=== PATIENT | male | born 1940 | race Caucasian/White ===

== ENCOUNTER 2019-12-22 07:43 | Day surgery (SDC) | payer MEDICARE ==
[~2019-12-22] VITALS: Ht 182.9 cm; Wt 82.6 kg
[~2019-12-22 07:43] MED LIST: ASPI-611 PO; HYDR25TA4 PO; LOSA50TA3 PO; MULT-342 PO
[2019-12-22] MEDS ORDERED: sodium bicarbonate (8.4%) inj. 75 MEQ in dextrose 5% water 500ml 500 ML IV SCH (08:10)
[2019-12-22 08:26] VITALS: BP 181/92
[2019-12-22] MEDS ORDERED: GABA-534 PO (09:23)
[2019-12-22] MEDS ORDERED: TRAZ-251 PO (10:17)
[2019-12-22] MEDS ORDERED: iohexol 350 MG/ML 50ML vial IV ONE (10:34)
[2019-12-22] MEDS ORDERED: iohexol 350MG/ML 100ml bottle IV ONE (10:34)
[2019-12-22 11:14] VITALS: BP 193/86
[2019-12-22] MEDS ORDERED: sodium bicarbonate (8.4%) inj. 75 ML in dextrose 5% water 500ml 500 ML IV ONE (11:35)
[2019-12-22 11:43] VITALS: BP 194/88
[2019-12-22 12:13] VITALS: BP 172/85
[2019-12-22 15:45] VITALS: BP 159/88
[2019-12-22 15:48] VITALS: BP 159/88
== END 2019-12-22 17:00 | disposition home or self-care (01) ==
LOC: SSTAY O 07:43
PROVIDERS: ATTEND Surgery
DX: I70.213 Atherosclerosis of native arteries of extremities with intermittent claudication, bilateral legs (principal); Z85.46 Personal history of malignant neoplasm of prostate; Z72.89 Other problems related to lifestyle; Z87.891 Personal history of nicotine dependence; Z79.82 Long term (current) use of aspirin; Z79.899 Other long term (current) drug therapy
CPT/HCPCS: 75635; Q9967

== ENCOUNTER 2022-01-27 09:23 | Outpatient (CLI) | payer MEDICARE ==
[~2022-01-27 09:23] MED LIST changes: +GABA-534 PO; +TRAZ-251 PO
[2022-01-27 10:38] LABS: ALANINE AMINOTRANSFERASE 28 U/L (12-78); ALBUMIN 3.8 G/DL (3.4-5.0); ALBUMIN/GLOBULIN RATIO 0.9 (1.1-1.5); ALKALINE PHOSPHATASE 90 IU/L (46-116); ANION GAP 10 (8-16); ASPARTATE AMINO TRANSFERASE 30 U/L (10-37); BILIRUBIN,TOTAL 0.4 MG/DL (0.1-1.0); BLOOD UREA NITROGEN 44 MG/DL (7-18); BUN/CREATININE RATIO 21.9 (5.4-32.0); CALCIUM 9.6 MG/DL (8.5-10.1); CHLORIDE 103 MMOL/L (99-107); CREATININE 2.01 MG/DL (0.60-1.10); GLUCOSE 96 MG/DL (70-104); POTASSIUM 4.4 MMOL/L (3.5-5.1); SODIUM 138 MMOL/L (135-145); TOTAL CARBON DIOXIDE 24.8 MMOL/L (24-32); TOTAL PROTEIN 8.1 G/DL (6.4-8.2); eGFR 32 ML/MIN
== END 2022-01-27 23:59 | disposition home or self-care (01) ==
LOC: LAB 09:23
PROVIDERS: ATTEND Surgery
DX: Z01.818 Encounter for other preprocedural examination (principal)
CPT/HCPCS: 36415; 80053

== ENCOUNTER 2022-02-01 08:22 | Outpatient (CLI) | payer MEDICARE ==
[~2022-02-01] VITALS: Ht 182.9 cm; Wt 87.8 kg
[2022-02-01 08:44] VITALS: BP 145/65
[2022-02-01] MEDS ORDERED: sodium bicarbonate (8.4%) inj. 150 ML in dextrose 5%-water 1,000 ML IV ONE (08:45)
[2022-02-01] MEDS ORDERED: UBID100C16 PO (09:18)
[2022-02-01] MEDS ORDERED: B6/F1CAP PO (09:18)
[2022-02-01] MEDS ORDERED: COLC0.6T72 PO (09:18)
[2022-02-01] MEDS ORDERED: LOP12.5T PO (09:18)
[2022-02-01] MEDS ORDERED: ALLO100T PO (09:18)
[2022-02-01] MEDS ORDERED: iohexol 350 MG/ML 50ML vial IV ONE (10:13)
[2022-02-01] MEDS ORDERED: iohexol 350MG/ML 100ml bottle IV ONE (10:13)
[2022-02-01 12:05] VITALS: BP 148/74
[2022-02-01 14:42] VITALS: BP 138/66
[2022-02-01 16:21] VITALS: BP 143/61
== END 2022-02-01 23:59 | disposition home or self-care (01) ==
LOC: SSTAY O 08:22
PROVIDERS: ATTEND Surgery
DX: I70.203 Unspecified atherosclerosis of native arteries of extremities, bilateral legs (principal); K40.90 Unilateral inguinal hernia, without obstruction or gangrene, not specified as recurrent; M47.819 Spondylosis without myelopathy or radiculopathy, site unspecified; K57.90 Diverticulosis of intestine, part unspecified, without perforation or abscess without bleeding; E27.8 Other specified disorders of adrenal gland; I51.7 Cardiomegaly; I70.8 Atherosclerosis of other arteries; I70.0 Atherosclerosis of aorta; K55.1 Chronic vascular disorders of intestine; I70.1 Atherosclerosis of renal artery
CPT/HCPCS: 75635; 93971; J3490; J7070; Q9967

== ENCOUNTER 2023-07-13 10:12 | Outpatient (CLI) | payer MEDICARE ==
[~2023-07-13 10:12] MED LIST changes: +ALLO100T PO; +B6/F1CAP PO; +COLC0.6T72 PO; -GABA-534 PO; +GABA-535 PO; +LOP12.5T PO; +LOSA-416 PO; -LOSA50TA3 PO; -TRAZ-251 PO; +UBID100C16 PO
[2023-07-13 11:12] LABS: BASOPHILS # (AUTO) 0.1 X10'3 (0-0.2); BASOPHILS % (AUTO) 1.1 % (0-1); EOSINOPHILS # (AUTO) 0.3 X10'3 (0-0.9); EOSINOPHILS % (AUTO) 4.3 % (0-6); HEMATOCRIT 38.5 % (42.0-52.0); HEMOGLOBIN 12.8 g/dl (14.0-17.9); LYMPHOCYTES # (AUTO) 1.6 X10'3 (1.1-4.8); LYMPHOCYTES % (AUTO) 20.4 % (21-51); MEAN CORPUSCULAR HEMOGLOBIN 32.6 PG (27.0-31.0); MEAN CORPUSCULAR HGB CONC 33.3 g/dL (33.0-36.5); MEAN CORPUSCULAR VOLUME 98.1 FL (78-98); MEAN PLATELET VOLUME 8.7 FL (7.4-10.4); MONOCYTES # (AUTO) 0.9 X10'3 (0-0.9); MONOCYTES % (AUTO) 11.3 % (2-12); NEUTROPHILS % (AUTO) 62.9 % (42-75); PLATELET COUNT 178 X10'3 (140-440); RED BLOOD COUNT 3.92 X10'6 (4.70-6.10); RED CELL DISTRIBUTION WIDTH 15.7 % (11.5-14.5); WHITE BLOOD COUNT 7.9 X10'3 (4.5-11.0)
[2023-07-13 11:29] LABS: APTT 28 SECONDS (22-32); PROTHROMBIN TIME 10.3 SECONDS (9.0-12.0)
[2023-07-13 11:42] LABS: ALANINE AMINOTRANSFERASE 18 U/L (12-78); ALBUMIN 3.5 G/DL (3.4-5.0); ALKALINE PHOSPHATASE 76 IU/L (46-116); ANION GAP 9 (8-16); ASPARTATE AMINO TRANSFERASE 24 U/L (10-37); BILIRUBIN,TOTAL 0.4 MG/DL (0.1-1.0); BLOOD UREA NITROGEN 33 MG/DL (7-18); BUN/CREATININE RATIO 16.9 (10.0-20.0); CALCIUM 9.1 MG/DL (8.5-10.1); CHLORIDE 104 MMOL/L (99-107); CREATININE 1.95 MG/DL (0.60-1.10); GLUCOSE 118 MG/DL (70-104); POTASSIUM 4.4 MMOL/L (3.5-5.1); PRO BRAIN NATRIURETIC PEPTIDE 1309 PG/ML (0-450); SODIUM 139 MMOL/L (135-145); TOTAL CARBON DIOXIDE 26.2 MMOL/L (24-32); TOTAL PROTEIN 7.1 G/DL (6.4-8.2); eGFR 33 ML/MIN
[2023-07-13 11:47] LABS: CHOLESTEROL 121 MG/DL (0-200); HDL CHOLESTEROL 41 MG/DL (35-60); LDL CHOLESTEROL 52 MG/DL (50-100)
[2023-07-13 11:48] LABS: TRIGLYCERIDES 203 MG/DL (20-135)
[2023-07-13] MEDS ORDERED: IODIXANOL 320 MG/ML INFUS..BTL 100ML IV ONE (12:20)
[2023-07-17] MEDS ORDERED: ROSU20TA73 PO (10:38)
[2023-07-17] MEDS ORDERED: LOSA1TAB39 PO (10:38)
== END 2023-07-13 23:59 | disposition home or self-care (01) ==
LOC: RAD 10:12
PROVIDERS: ATTEND Internal Medicine Cardiovascular Disease
DX: Z01.818 Encounter for other preprocedural examination (principal); I11.9 Hypertensive heart disease without heart failure; I35.0 Nonrheumatic aortic (valve) stenosis; R06.02 Shortness of breath; I65.29 Occlusion and stenosis of unspecified carotid artery; E78.5 Hyperlipidemia, unspecified; I25.10 Atherosclerotic heart disease of native coronary artery without angina pectoris; M47.814 Spondylosis without myelopathy or radiculopathy, thoracic region; Z90.79 Acquired absence of other genital organ(s); Z98.890 Other specified postprocedural states
CPT/HCPCS: 36415; 71046; 71275; 74174; 75572; 80053; 80061; 83880; 85025; 85610; 85730; 94010; 94727; 94729; J3490; Q9967

== ENCOUNTER 2023-08-28 10:46 | Day surgery (SDC) | payer MEDICARE ==
[2023-08-24 12:45] LABS: BASOPHILS % (AUTO) 0.6 % (0-1); EOSINOPHILS # (AUTO) 0.4 X10'3 (0-0.9); EOSINOPHILS % (AUTO) 5.8 % (0-6); HEMATOCRIT 38.1 % (42.0-52.0); HEMOGLOBIN 12.6 g/dl (14.0-17.9); LYMPHOCYTES % (AUTO) 14.6 % (21-51); MEAN CORPUSCULAR HEMOGLOBIN 32.6 PG (27.0-31.0); MEAN CORPUSCULAR HGB CONC 33.1 g/dL (33.0-36.5); MEAN CORPUSCULAR VOLUME 98.7 FL (78-98); MEAN PLATELET VOLUME 8.4 FL (7.4-10.4); MONOCYTES # (AUTO) 0.9 X10'3 (0-0.9); MONOCYTES % (AUTO) 12.3 % (2-12); NEUTROPHILS # (AUTO) 4.7 X10'3 (1.8-7.7); NEUTROPHILS % (AUTO) 66.7 % (42-75); PLATELET COUNT 170 X10'3 (140-440); RED BLOOD COUNT 3.86 X10'6 (4.70-6.10); RED CELL DISTRIBUTION WIDTH 15.4 % (11.5-14.5)
[2023-08-24 12:54] LABS: ALBUMIN 3.3 G/DL (3.4-5.0); ANION GAP 7 (8-16); BLOOD UREA NITROGEN 63 MG/DL (7-18); BUN/CREATININE RATIO 28.4 (10.0-20.0); CALCIUM 9.6 MG/DL (8.5-10.1); CHLORIDE 100 MMOL/L (99-107); CREATININE 2.22 MG/DL (0.60-1.10); GLUCOSE 171 MG/DL (70-104); POTASSIUM 3.6 MMOL/L (3.5-5.1); SODIUM 134 MMOL/L (135-145); TOTAL CARBON DIOXIDE 26.7 MMOL/L (24-32); eGFR 28 ML/MIN
[2023-08-24 12:57] LABS: APTT 31 SECONDS (22-32); PROTHROMBIN TIME 10.7 SECONDS (9.0-12.0)
[~2023-08-28] VITALS: Ht 182.9 cm; Wt 87.0 kg
[2023-08-28] VITALS (11 sets, daily range): BP systolic 138–149; BP diastolic 73–93; PULSE 61–86; RESP 14–18; TEMP 97.5; O2SAT 92–96
[~2023-08-28 10:46] MED LIST changes: -B6/F1CAP PO; -COLC0.6T72 PO; -HYDR25TA4 PO; -LOP12.5T PO; -LOSA-416 PO; +LOSA1TAB39 PO; -MULT-342 PO; +ROSU20TA73 PO
[2023-08-28] MEDS ORDERED: LORazepam 0.5 MG tablet PO PRN (11:05)
[2023-08-28] MEDS ORDERED: normal saline 1,000 ML IV SCH (11:05)
[2023-08-28] MEDS ORDERED: diphenhydrAMINE 25mg capsule PO PRN (11:05)
[2023-08-28] MEDS ORDERED: verapamil 2.5 mg/ml inj IV ONE (12:10)
[2023-08-28] MEDS ORDERED: methylPREDNISolone sod succ 125mg/2ml vial IV ONE (12:10)
[2023-08-28] MEDS ORDERED: LIDOcaine 1% (10mg/ml) 2ml vial ONE (12:10)
[2023-08-28] MEDS ORDERED: fentaNYL/PF 50MCG/1 ML 2ML syringe ONE (12:11)
[2023-08-28] MEDS ORDERED: midazolam 1 mg/ML 2ml injection ONE (12:11)
[2023-08-28] MEDS ORDERED: heparin 1,000unit/ml 10ml vial 10 ML ONE (12:11)
[2023-08-28] MEDS ORDERED: iohexol 350MG/ML 100ml bottle IV ONE ×2 (12:11→14:03)
[2023-08-28] MEDS ORDERED: nitroGLYCERIN 500mcg/5mL D5W 5 ML IV ONE (12:28)
[2023-08-28] MEDS ORDERED: iohexol 350 MG/ML 50ML vial IV ONE (14:02)
[2023-08-28] MEDS ORDERED: clopidogrel 300mg tablet ONE (14:21)
[2023-08-28] MEDS ORDERED: aspirin 325mg tablet ONE (14:21)
[2023-08-28] MEDS ORDERED: ondansetron/PF 4mg/2ml inj IV PRN (15:00)
[2023-08-28] MEDS ORDERED: proCHLORperazine 10 MG/2 ml inj IV PRN (15:00)
== END 2023-08-28 17:30 | disposition home or self-care (01) ==
LOC: SSTAY O 10:46
PROVIDERS: ATTEND Student in an Organized Health Care Education/Training Program
DX: I25.10 Atherosclerotic heart disease of native coronary artery without angina pectoris (principal); I13.0 Hypertensive heart and chronic kidney disease with heart failure and stage 1 through stage 4 chronic kidney disease, or unspecified chronic kidney disease; I50.9 Heart failure, unspecified; N18.9 Chronic kidney disease, unspecified; E78.5 Hyperlipidemia, unspecified; I65.29 Occlusion and stenosis of unspecified carotid artery; I49.5 Sick sinus syndrome; I35.0 Nonrheumatic aortic (valve) stenosis; M10.9 Gout, unspecified; Z79.899 Other long term (current) drug therapy; Z79.82 Long term (current) use of aspirin; Z88.2 Allergy status to sulfonamides; Z88.8 Allergy status to other drugs, medicaments and biological substances; Z87.891 Personal history of nicotine dependence; Z85.46 Personal history of malignant neoplasm of prostate; Z90.79 Acquired absence of other genital organ(s)
CPT/HCPCS: 36415; 80048; 85025; 85610; 85730; 93005; 99152; 99153; C1874; C9600; J1644; J2250; J2930; J3010; J3490; J7030; Q0163; Q9967; A6258; A6402; C1725; C1751; C1769; C1894

== ENCOUNTER 2023-10-04 05:12 | Inpatient (IN) | payer MEDICARE ==
[2023-09-26 16:31] LABS: BASOPHILS # (AUTO) 0.1 X10'3 (0-0.2); BASOPHILS % (AUTO) 0.8 % (0-1); EOSINOPHILS # (AUTO) 0.2 X10'3 (0-0.9); EOSINOPHILS % (AUTO) 3.1 % (0-6); LYMPHOCYTES % (AUTO) 14.4 % (21-51); MEAN CORPUSCULAR HEMOGLOBIN 32.4 PG (27.0-31.0); MEAN CORPUSCULAR HGB CONC 32.4 g/dL (33.0-36.5); MEAN PLATELET VOLUME 9.2 FL (7.4-10.4); MONOCYTES # (AUTO) 0.8 X10'3 (0-0.9); MONOCYTES % (AUTO) 10.8 % (2-12); NEUTROPHILS # (AUTO) 5.1 X10'3 (1.8-7.7); NEUTROPHILS % (AUTO) 70.9 % (42-75); PRE OP HEMATOCRIT 37.5 % (42.0-52.0); PRE OP HEMOGLOBIN 12.1 g/dL (14.0-17.9); PRE OP PLATELET COUNT 201 X10'3 (140-440); PRE OP WHITE BLOOD COUNT 7.2 10'3 (4.8-10.8); RED BLOOD COUNT 3.75 X10'6 (4.70-6.10); RED CELL DISTRIBUTION WIDTH 16.9 % (11.5-14.5)
[2023-09-26 16:43] LABS: PRE OP INR 1.1 INR; PRE OP PROTIME 11.9 SECONDS (9.0-12.0)
[2023-09-26 16:51] LABS: BILIRUBIN,URINE NEGATIVE (Neg); CLARITY,URINE SLIGHTLY CLOUDY (Clear); COLOR,URINE YELLOW (Yellow); GLUCOSE, URINE NEGATIVE (Neg); KETONES,URINE NEGATIVE (Neg); LEUKOCYTE ESTERASE ,URINE NEGATIVE (Neg); NITRITES, URINE NEGATIVE (Neg); OCCULT BLOOD,URINE TRACE-INTACT (Neg); PH,URINE 5.5 (4.8-8.0); PROTEIN,URINE 30 mg/dl (Neg); UROBILINOGEN,URINE 0.2 E.U/dL (0.2-1.0)
[2023-09-26 16:58] LABS: UA COLLECTION TYPE CLN CATCH MIDSTREAM
[2023-09-26 17:12] LABS: ALBUMIN 3.2 G/DL (3.4-5.0); ALBUMIN/GLOBULIN RATIO 0.8 (1.1-1.5); ALKALINE PHOSPHATASE 91 IU/L (46-116); BLOOD UREA NITROGEN 87 MG/DL (7-18); BUN/CREATININE RATIO 28.7 (10.0-20.0); CALCIUM 8.9 MG/DL (8.5-10.1); CHLORIDE 101 MMOL/L (99-107); CREATININE 3.03 MG/DL (0.60-1.10); PRE OP ALT 44 U/L (30-65); PRE OP ANION GAP 7 (8-16); PRE OP AST 18 U/L (10-37); PRE OP BILIRUB, TOTAL 0.5 MG/DL (0.0-1.0); PRE OP GLUCOSE 141 MG/DL (70-104); PRE OP SODIUM 140 MMOL/L (135-145); TOTAL CARBON DIOXIDE 31.9 MMOL/L (24-32); eGFR 20 ML/MIN
[2023-09-26 17:22] LABS: HYALINE CASTS 0-3 /LPF (NEGATIVE); SQUAMOUS EPITHELIAL CELL,UR MANY /LPF (FEW)
[2023-09-26 17:23] LABS: BACTERIA,URINE 1+ /HPF (Neg); RBC,URINE 0-2 /HPF (0-2); TRANSITIONAL EPI CELLS,URINE FEW /HPF; WBC,URINE 0-4 /HPF (0-4)
[2023-09-26 17:37] LABS: PRE OP POTASSIUM 3.1 MMOL/L (3.4-5.1)
[~2023-10-04] VITALS: Ht 182.9 cm; Wt 84.5 kg
[2023-10-04] VITALS (28 sets, daily range): BP systolic 116–144; BP diastolic 59–80; PULSE 60–70; RESP 12–19; TEMP 97–98.1; O2SAT 93–100
[~2023-10-04 05:12] MED LIST changes: +BUME2TAB7 PO; +CLOP75TA34 PO; +LOSA100T58 PO; -LOSA1TAB39 PO; +MELA1LIQ PO; +METO25TA6 PO; +ringers solution, lacted 1,000 ML IV SCH
[2023-10-04] MEDS ORDERED: DOCUMENT DATE & TIME OF BETA-BLOCKER PO ONE (05:30)
[2023-10-04] MEDS ORDERED: phenylephrine inj 50 MG in normal saline 250ml IV solN IV SCH (05:30)
[2023-10-04] MEDS ORDERED: aspirin 325mg tablet PO ONE (05:30)
[2023-10-04] MEDS ORDERED: famotidine 20mg tablet PO ONE (05:30)
[2023-10-04] MEDS ORDERED: cefazolin 2gm/D5W 100mL 100 ML IV ONE (05:30)
[2023-10-04] MEDS ORDERED: ondansetron 4mg rapidly disintigrating tab PO PRN (05:30)
[2023-10-04] MEDS ORDERED: vancomycin 1,500 MG in NS 300ml IV soln IV ONE (05:30)
[2023-10-04] MEDS ORDERED: nitroPRUSSIDE (NIPRIDE) (200MCG/ML) 100ML Drip IV SCH (05:30)
[2023-10-04] MEDS ORDERED: heparin 1,000 UNITS/NS 500ml 1,500 ML ONE (06:46)
[2023-10-04] MEDS ORDERED: iohexol 350MG/ML 100ml bottle IV ONE (06:46)
[2023-10-04] MEDS ORDERED: LIDOcaine 1% (10mg/ml)w/preservative inj. 20ml MDV ONE (06:46)
[2023-10-04] MEDS ORDERED: protamine sulfate 10mg/ml inj. ONE (06:57)
[2023-10-04] MEDS ORDERED: protamine sulf. 10mg/ml inj. IV ONE (07:00)
[2023-10-04] MEDS ORDERED: heparin 1,000 units/ml 10ml inj ONE (07:05)
[2023-10-04] MEDS ORDERED: REMIFENTANIL (Ultiva) 1 MG VIAL IV ONE (07:15)
[2023-10-04] MEDS ORDERED: midazolam 1 mg/ML 2ml injection ONE (07:15)
[2023-10-04] MEDS ORDERED: LIDOcaine 2% (20mg/ml) 5ml vial ONE (07:34)
[2023-10-04] MEDS ORDERED: propofol inj 20 ML IV ONE (08:27)
[2023-10-04] MEDS ORDERED: magnesium 2GM in 50ml NS 50 ML IV PRN (08:45)
[2023-10-04] MEDS ORDERED: proCHLORperazine 10 MG/2 ml inj IV PRN (08:45)
[2023-10-04] MEDS ORDERED: acetaminophen 325mg tablet PO PRN (08:45)
[2023-10-04] MEDS ORDERED: potassium Cl 20 mEq SR tablet PO PRN (08:45)
[2023-10-04] MEDS ORDERED: ondansetron/PF 4mg/2ml inj IV PRN (08:45)
[2023-10-04] MEDS ORDERED: magnesium 4gm in 100ml NS 100 ML IV PRN (08:45)
[2023-10-04] MEDS ORDERED: pantoprazole 40mg Tablet.DR PO PRN (08:45)
[2023-10-04] MEDS ORDERED: diphenhydrAMINE 25mg capsule PO PRN (08:45)
[2023-10-04] MEDS ORDERED: HYDROcodone/acetaminophen 5mg/325mg tablet PO PRN (08:45)
[2023-10-04] MEDS ORDERED: ALPRAZolam 0.25mg tablet PO PRN (08:45)
[2023-10-04] MEDS ORDERED: potassium Cl 40MEQ/1/2NS 520ml 520 ML IV PRN (08:45)
[2023-10-04] MEDS ORDERED: labetalol 20mg/4ml (5mg/ml) syringe IV PRN (08:45)
[2023-10-04] MEDS ORDERED: potassium Cl 20mEq/100mL bag 100 ML IV PRN (08:45)
[2023-10-04] MEDS ORDERED: potassium Cl 40MEQ/270ML bag 250 ML IV PRN (08:45)
[2023-10-04] MEDS ORDERED: docusate sod 100mg capsule PO PRN (08:45)
[2023-10-04] MEDS ORDERED: hydrALAZINE 20mg/ml inj. IV PRN (08:45)
[2023-10-04] MEDS ORDERED: potassium CL 10mEq/100ml bag 100 ML IV PRN (08:45)
--- NOTE | 2023-10-04 08:53 | NUR ---
Received from OR via HOSPITAL BED TO RR 7, accompanied by Anesthesiologist DR RICHARDSON and report given by Anesthesiolgist. PT PRESENTS WITH PIV 20G RIGHT FOREARM, ART LINE RIGHT WRIST, SPO2 100% MASK 6L, BILATERAL GROIN SITES CDI SOFT NONTENDER, DORSALIS PEDUS AND POSTERIOR TIBIAL ARTERY DOPPLERED AND MARKED, NEURO CHECK INTACT, VSS. Addendum: 10/04/23 at 0913 by Chacha Jaquez RN, RN Amended: Links added.
--- NOTE | 2023-10-04 10:00 | NUR ---
ART LINE REMOVED FROM RIGHT WRIST, 4X4 WITH COBAN PLACED. PT TOLERATED WELL.
[2023-10-04] MEDS ORDERED: Melatonin 3mg tablet PO PRN (10:25)
--- NOTE | 2023-10-04 11:13 | NUR ---
Report called to receiving nurse COREY YOU. Transferred via HOSPITAL BED TO ROOM 3011Y. BED IN LOW LOCKED POSTION WITH CALL LIGHT IN REACH, PT HOOKED UP TO TELE MONITOR. Belongings TAKEN TO ROOM WITH PT 1 BELONGINGS BAG AND 1 CANE. Special Issues communicated to receiving nurse. Addendum: 10/04/23 at 1127 by Chacha Jaquez RN, RN Amended: Links added.
--- NOTE | 2023-10-04 11:30 | NUR ---
Patient in room U 3017. I have received report from Chacha YOU and had the opportunity to ask questions and assume patient care. Pt settled into room. Call light in reach.Right groin DRSG site with scant drainage. Left groin site DRSG CDI. Bilat Pulses Doppler only. Addendum: 10/04/23 at 1344 by Roxanna Melendez RN Amended: Links added.
[2023-10-04] MEDS: normal saline 1000ml 1,000 ML IV SCH ×2 (11:53→20:26)
--- NOTE | 2023-10-04 14:27 | NUR ---
DR Solo contacted,order for strait cath recieved. Pt tolerated well. 900 ml clear yellow urine removed. Pt stated relief. Addendum: 10/04/23 at 1428 by Roxanna Melendez RN Amended: Links added.
[2023-10-04] MEDS: sod chloride 0.9% 10ml flush syringe IV SCH (16:09)
[2023-10-04] MEDS: ceFAZolin 1GM/D5W- ADD-VANTAGE 50 ML IV SCH (16:15)
--- NOTE | 2023-10-04 18:12 | NUR ---
Problems reprioritized. Patient report given, questions answered & plan of care reviewed with Prudence KENYATTA. Pt eating dinner. R [facility] site stable. call light in reach Addendum: 10/04/23 at 1813 by Roxanna Melendez RN Amended: Links added.
--- NOTE | 2023-10-04 18:39 | NUR ---
Patient in room PCU 3017. I have received report from GUSTABO YOU and had the opportunity to ask questions and assume patient care.
[2023-10-04] MEDS: vancomycin/NS 1 GM ADD-VANTAGE 250 ML IV SCH (20:26)
[2023-10-04] MEDS: metoprolol tartrate 25mg tablet PO SCH (20:27)
[2023-10-05] MEDS: sod chloride 0.9% 10ml flush syringe IV SCH ×2 (00:31→08:23)
[2023-10-05] MEDS: ceFAZolin 1GM/D5W- ADD-VANTAGE 50 ML IV SCH ×2 (00:31→08:17)
[2023-10-05 02:00] VITALS: BP 126/76; PULSE 65; RESP 17; TEMP 97.6; O2SAT 98
[2023-10-05] MEDS: normal saline 1000ml 1,000 ML IV SCH ×2 (04:45→14:45)
[2023-10-05 06:00] VITALS: BP 139/67; PULSE 61; RESP 13; TEMP 97.8; O2SAT 96
--- NOTE | 2023-10-05 06:13 | NUR ---
Patient in room PCU 3017. I have received report from Katina YOU and had the opportunity to ask questions and assume patient care.Pt sleeping, Call light in reach. R [facility] site DRSG unchanged. Addendum: 10/05/23 at 0614 by Roxanna Melendez RN Amended: Links added.
--- NOTE | 2023-10-05 06:16 | NUR ---
Problems reprioritized. Patient report given, questions answered & plan of care reviewed with GUSTABO YOU.
[2023-10-05 07:35] VITALS: RESP 16; O2SAT 96
[2023-10-05 07:43] LABS: BASOPHILS # (AUTO) 0.1 X10'3 (0-0.2); BASOPHILS % (AUTO) 0.7 % (0-1); EOSINOPHILS # (AUTO) 0.1 X10'3 (0-0.9); EOSINOPHILS % (AUTO) 0.6 % (0-6); HEMATOCRIT 33.9 % (42.0-52.0); HEMOGLOBIN 11.2 g/dl (14.0-17.9); LYMPHOCYTES % (AUTO) 12.7 % (21-51); MEAN CORPUSCULAR HEMOGLOBIN 32.8 PG (27.0-31.0); MEAN CORPUSCULAR HGB CONC 33.1 g/dL (33.0-36.5); MEAN CORPUSCULAR VOLUME 99.2 FL (78-98); MEAN PLATELET VOLUME 8.8 FL (7.4-10.4); MONOCYTES # (AUTO) 1.2 X10'3 (0-0.9); MONOCYTES % (AUTO) 14.8 % (2-12); NEUTROPHILS # (AUTO) 5.8 X10'3 (1.8-7.7); NEUTROPHILS % (AUTO) 71.2 % (42-75); PLATELET COUNT 126 X10'3 (140-440); RED BLOOD COUNT 3.42 X10'6 (4.70-6.10); RED CELL DISTRIBUTION WIDTH 16.7 % (11.5-14.5); WHITE BLOOD COUNT 8.2 X10'3 (4.5-11.0)
[2023-10-05] MEDS ORDERED: allopurinol 100mg tablet PO SCH ×2 (08:00→14:39)
[2023-10-05] MEDS ORDERED: gabapentin 400mg capsule PO SCH (08:00)
[2023-10-05] MEDS ORDERED: non-formulary drug (Aspirin (Aspir 81) 1 TABLET) PO SCH (08:00)
[2023-10-05] MEDS ORDERED: atorvastatin 20mg tablet PO SCH (08:00)
[2023-10-05] MEDS ORDERED: UBIDECARENONE PO SCH (08:00)
[2023-10-05] MEDS ORDERED: clopidogrel 75mg tablet PO SCH (08:00)
[2023-10-05 08:03] LABS: ALANINE AMINOTRANSFERASE 22 U/L (12-78); ALBUMIN 2.7 G/DL (3.4-5.0); ALBUMIN/GLOBULIN RATIO 0.8 (1.1-1.5); ALKALINE PHOSPHATASE 68 IU/L (46-116); ANION GAP 11 (8-16); ASPARTATE AMINO TRANSFERASE 24 U/L (10-37); BILIRUBIN,TOTAL 0.5 MG/DL (0.1-1.0); BLOOD UREA NITROGEN 75 MG/DL (7-18); BUN/CREATININE RATIO 26.6 (10.0-20.0); CALCIUM 8.4 MG/DL (8.5-10.1); CHLORIDE 101 MMOL/L (99-107); CREATININE 2.82 MG/DL (0.60-1.10); GLUCOSE 101 MG/DL (70-104); MAGNESIUM 1.8 MG/DL (1.5-2.4); POTASSIUM 3.6 MMOL/L (3.5-5.1); PRO BRAIN NATRIURETIC PEPTIDE 21942 PG/ML (0-450); SODIUM 135 MMOL/L (135-145); TOTAL CARBON DIOXIDE 22.6 MMOL/L (24-32); TOTAL PROTEIN 5.9 G/DL (6.4-8.2); eCRCL 21 ML/MIN; eGFR 21 ML/MIN
[2023-10-05] MEDS: vancomycin/NS 1 GM ADD-VANTAGE 250 ML IV SCH (08:23)
[2023-10-05] MEDS: metoprolol tartrate 25mg tablet PO SCH (08:23)
[2023-10-05] MEDS ORDERED: aspirin 81mg tab.chew PO SCH (08:30)
[2023-10-05 11:00] VITALS: BP 139/78; PULSE 68; RESP 20; TEMP 97.9; O2SAT 98
[2023-10-05] MEDS ORDERED: BUME1TAB8 PO (14:31)
--- NOTE | 2023-10-05 15:33 | NUR ---
All written and verbal orders for D/C given. All questions answered. detailed instructions given on activity,meds , follow up and wound care. await ride home. pt states he has all belongings gathered. Addendum: 10/05/23 at 1536 by Roxanna Melendez RN Amended: Links added.
--- NOTE | 2023-10-05 15:42 | NUR ---
pt to home with aLL BELONGINGS INCLUDING CANE AND CELL PHONE.
== END 2023-10-05 15:47 | disposition home or self-care (01) | DRG 266 ==
LOC: PAS IN 05:12 → EDSTATUS 07:30 → PCU 3S 11:20 → SUR 3N 10-05 12:32 → PCU 3S 10-05 12:33
PROVIDERS: ADMIT Internal Medicine Cardiovascular Disease; ATTEND Internal Medicine Cardiovascular Disease
PROC: 5A1223Z Performance of Cardiac Pacing, Continuous (ICD-10-PCS; 2023-10-04)
PROC: B41F1ZZ Fluoroscopy of Right Lower Extremity Arteries using Low Osmolar Contrast (ICD-10-PCS; 2023-10-04)
PROC: B41G1ZZ Fluoroscopy of Left Lower Extremity Arteries using Low Osmolar Contrast (ICD-10-PCS; 2023-10-04)
PROC: 02RF38N Replacement of Aortic Valve with Zooplastic Tissue, using Rapid Deployment Technique, Percutaneous Approach (ICD-10-PCS; principal; 2023-10-04 07:05)
DX: I35.0 Nonrheumatic aortic (valve) stenosis (principal); Z00.6 Encounter for examination for normal comparison and control in clinical research program; I50.21 Acute systolic (congestive) heart failure; I13.0 Hypertensive heart and chronic kidney disease with heart failure and stage 1 through stage 4 chronic kidney disease, or unspecified chronic kidney disease; N17.9 Acute kidney failure, unspecified; E78.5 Hyperlipidemia, unspecified; N18.30 Chronic kidney disease, stage 3 unspecified; I25.10 Atherosclerotic heart disease of native coronary artery without angina pectoris; Z79.899 Other long term (current) drug therapy; Z95.0 Presence of cardiac pacemaker; Z95.2 Presence of prosthetic heart valve; Z98.61 Coronary angioplasty status
CPT/HCPCS: 33361; 36415; 71045; 76937; 80053; 81001; 83735; 83880; 85025; 85347; 85610; 85730; 86885; 86900; 86901; 86920; 87081; 93005; 93308; A4615; A4618; A6258; A6402; A6449; C1756; C1758; C1760; C1769; C1894; G0378; J0690; J1644; J2250; J2370; J2704; J2720; J3370; J3490; J7030; J7040; J7050; J7120; Q9967

== ENCOUNTER 2023-10-21 09:42 | Emergency (ER) | payer OTHER, MEDICARE ==
[~2023-10-21] VITALS: Ht 182.9 cm; Wt 84.0 kg
[~2023-10-21 09:42] MED LIST changes: +BUME1TAB8 PO; -BUME2TAB7 PO; -LOSA100T58 PO; -ringers solution, lacted 1,000 ML IV SCH
[2023-10-21 11:36] LABS: BASOPHILS % (AUTO) 0.5 % (0-1); EOSINOPHILS # (AUTO) 0.1 X10'3 (0-0.9); EOSINOPHILS % (AUTO) 1.2 % (0-6); HEMATOCRIT 34.4 % (42.0-52.0); HEMOGLOBIN 11.4 g/dl (14.0-17.9); LYMPHOCYTES # (AUTO) 0.9 X10'3 (1.1-4.8); LYMPHOCYTES % (AUTO) 10.7 % (21-51); MEAN CORPUSCULAR HEMOGLOBIN 32.4 PG (27.0-31.0); MEAN CORPUSCULAR VOLUME 98.1 FL (78-98); MEAN PLATELET VOLUME 8.7 FL (7.4-10.4); MONOCYTES % (AUTO) 11.4 % (2-12); NEUTROPHILS # (AUTO) 6.7 X10'3 (1.8-7.7); NEUTROPHILS % (AUTO) 76.2 % (42-75); PLATELET COUNT 228 X10'3 (140-440); RED BLOOD COUNT 3.51 X10'6 (4.70-6.10); RED CELL DISTRIBUTION WIDTH 16.6 % (11.5-14.5); WHITE BLOOD COUNT 8.8 X10'3 (4.5-11.0)
[2023-10-21 11:45] VITALS: BP 126/76; PULSE 73; RESP 16; O2SAT 98
[2023-10-21 11:47] LABS: D-DIMER 2.18 MG/L FEU (0-0.50)
[2023-10-21 12:03] LABS: ALANINE AMINOTRANSFERASE 42 U/L (12-78); ALBUMIN 2.6 G/DL (3.4-5.0); ALBUMIN/GLOBULIN RATIO 0.6 (1.1-1.5); ALKALINE PHOSPHATASE 132 IU/L (46-116); ANION GAP 8 (8-16); ASPARTATE AMINO TRANSFERASE 61 U/L (10-37); BILIRUBIN,TOTAL 0.6 MG/DL (0.1-1.0); BLOOD UREA NITROGEN 44 MG/DL (7-18); BUN/CREATININE RATIO 20.4 (10.0-20.0); CALCIUM 8.5 MG/DL (8.5-10.1); CHLORIDE 95 MMOL/L (99-107); CREATININE 2.16 MG/DL (0.60-1.10); GLUCOSE 137 MG/DL (70-104); SODIUM 137 MMOL/L (135-145); TOTAL CARBON DIOXIDE 33.7 MMOL/L (24-32); TOTAL PROTEIN 7.3 G/DL (6.4-8.2); eCRCL 27 ML/MIN; eGFR 29 ML/MIN
[2023-10-21 12:10] LABS: PRO BRAIN NATRIURETIC PEPTIDE > 30000 PG/ML (0-450)
[2023-10-21 12:19] LABS: POTASSIUM 2.5 MMOL/L (3.5-5.1)
[2023-10-21] MEDS ORDERED: furosemide 40mg/4ml inj IV ONE (12:35)
[2023-10-21] MEDS ORDERED: potassium Cl 20 mEq SR tablet PO STA (12:36)
[2023-10-21] MEDS ORDERED: ZAR2.5T CORPAK (12:49)
== END 2023-10-21 14:06 | disposition home or self-care (01) ==
LOC: ER 09:43
DX: R60.0 Localized edema (principal); E87.6 Hypokalemia; I50.9 Heart failure, unspecified; Z88.2 Allergy status to sulfonamides
CPT/HCPCS: 36415; 71045; 80053; 83880; 84484; 85025; 85379; 93005; 99285

== ENCOUNTER 2025-01-21 12:43 | Outpatient (CLI) | payer MEDICARE ==
[~2025-01-21 12:43] MED LIST changes: -BUME1TAB8 PO; +MAGN400C PO; -MELA1LIQ PO; +METO-395 PO; -METO25TA6 PO; -ROSU20TA73 PO; +SACU1TAB PO; +SPIR25TA5 PO
== END 2025-01-21 23:59 | disposition home or self-care (01) ==
LOC: VAS 12:43
PROVIDERS: ATTEND Surgery
DX: I70.203 Unspecified atherosclerosis of native arteries of extremities, bilateral legs (principal)
CPT/HCPCS: 93922; 93926